=== PATIENT | male | born 2000 | race Caucasian/White ===

== ENCOUNTER 2023-05-23 13:35 | Day surgery (SDC) | payer BC ==
[2023-05-22 11:06] VITALS: BMI 28.8
[2023-05-23] MEDS ORDERED: Famotidine/PF 20 mg/2ml Vial ONE (14:10)
[2023-05-23] MEDS ORDERED: Lidocaine 2% PF 5 ML VIAL ONE (14:14)
[2023-05-23] MEDS ORDERED: fentaNYL PF 100 MCG/2 ML SYRINGE ONE (14:14)
[2023-05-23] MEDS ORDERED: PROPOFOL 20 ML ONE (14:14)
[2023-05-23] MEDS ORDERED: Midazolam HCl 2 mg/2 ml Vial ONE (14:16)
[2023-05-23] MEDS ORDERED: CEFAZOLIN 2 GM VIAL ONE (14:23)
[2023-05-23] MEDS ORDERED: Sodium Chloride 0.9% 100 ML ONE (14:24)
[2023-05-23] MEDS ORDERED: Ropivacaine 2% HCl/PF (20 MG/10 ML VIAL) ONE (14:25)
[2023-05-23] MEDS ORDERED: Ropivacaine 0.5% HCl/PF (150 MG/30 ML VIAL) ONE (14:25)
[2023-05-23] MEDS ORDERED: Ondansetron PF 4 MG/2 ML Vial ONE (14:53)
[2023-05-23] MEDS ORDERED: Ketorolac Tromethamine 30 MG (1 mL) VIAL ONE (14:53)
[2023-05-23] MEDS ORDERED: Metoclopramide HCl 10 MG (2 mL) VIAL ONE (14:53)
[2023-05-23] MEDS ORDERED: Dexamethasone 4 mg/ml Vial ONE (14:53)
[2023-05-23] MEDS ORDERED: Ondansetron HCl/PF 4 MG/2 ML Vial IVP PRN (14:56)
[2023-05-23] MEDS ORDERED: Meperidine HCl/PF 25 MG/ML VIAL SLOW IVP PRN (14:56)
[2023-05-23] MEDS ORDERED: Promethazine HCl 25 MG/ML VIAL IM PRN (14:56)
== END 2023-05-23 17:11 | disposition home or self-care (01) ==
LOC: SDC 13:35
PROVIDERS: ATTEND Orthopaedic Surgery
PROC: 0PSH04Z Reposition Right Radius with Internal Fixation Device, Open Approach (ICD-10-PCS; principal; 2023-05-23)
DX: S52.571A Other intraarticular fracture of lower end of right radius, initial encounter for closed fracture (principal); S52.532A Colles' fracture of left radius, initial encounter for closed fracture; W09.8XXA Fall on or from other playground equipment, initial encounter; Y93.66 Activity, soccer
CPT/HCPCS: C1713; J1100; J1885; J2001; J2250; J2405; J2704; J2765; J2795; J3490; S0028